=== PATIENT | female | born 1945 | race Caucasian/White ===

== ENCOUNTER 2016-11-03 17:09 | Observation (INO) | payer MEDICARE, OTHER ==
--- NOTE | ~2016-11-03 | PREOPHP ---
PreOp History and Physical [facility] [address] [place]. [address] NAME: BOY ALMAZAN : 41 STATUS : ADM IN [facility]#: [id number] AGE: 71 ADM/REG DATE : 11/03/16 MR#: [id number] REPORT SERV DATE: 11/03/16 DICTATED BY: OTONIEL BAXTER DATE: 11/03/16 REPORT STATUS : Draft TRANSCRIBED BY: KUMAR DATE: 11/03/16 CHIEF COMPLAINT: Intractable right hip and leg pain. HISTORY OF PRESENT ILLNESS: This is a 71-year-old female with severe intractable right hip and leg pain that started in late 06/2016. The pain started after she was down to floor working, helping, removed tile for three days in a row. The pain gradually worsened. She was ultimately seen by Dr. Diaz Chavez and had physical therapy, had epidural injections, nothing was helping. Then just in the last few days the pain suddenly became excruciating with 10/10 pain to the point she has not been able to sleep for last two to three days. She has been unable even get up and sit on the toilet because the pain was so severe. She was seen by my physician's support assistant MRI was obtained showing a very large disk herniation with extrusion on the right L5-S1 causing severe nerve impingement. The patient says she just could not go any further because she lives [place] 50 to 60 miles away because her pain is so intractable and with such a large disk herniation she is admitted for IV pain control, will be taken to surgery in the morning for a right L5- S1 microdiskectomy. Risks, benefits, alternatives, and expectations including, but not limited to infection, recurrent herniation, needing further surgery up to and including arthrodesis is explained. I have also explained there is risk of incidental durotomy, subsequent meningitis or need for surgical drainage or repair. There is always a risk of perioperative complications such as UTI, PE, pneumonia, OR, CVA etc. Consent forms will be signed according to the patient. PAST MEDICAL HISTORY: None. PAST SURGICAL HISTORY: Abdominal hysterectomy and oophorectomy. CURRENT MEDICATIONS: None. ALLERGIES: CODEINE, WHICH CAUSES NAUSEA AND VOMITING, AND RASH. SOCIAL HISTORY: She is . Former smoker, but has not smoked for many years. Does not use any alcohol. Very active. Working constant basis. Driving, doing all of her usual independent living activities. FAMILY HISTORY: Negative. REVIEW OF SYSTEMS: Negative. PHYSICAL EXAMINATION: GENERAL: She is 5 feet 3 inches, 146 pounds. Alert, cooperative, well oriented. Ambulates independently. HEENT: Grossly normal. LUNGS: Clear to auscultation. HEART: Rate is regular and rhythmic. ABDOMEN: Soft with good bowel sounds. No peritoneal signs are noted. MUSCULOSKELETAL: The spine itself has no deformities. She has no paraspinous muscle PreOp History and Physical [address] [address] NAME: BOY ALMAZAN : 41 STATUS : ADM IN [facility]#: [id number] AGE: 71 ADM/REG DATE : 11/03/16 MR#: [id number] REPORT SERV DATE: 11/03/16 DICTATED BY: OTONIEL BAXTER DATE: 11/03/16 REPORT STATUS : Draft TRANSCRIBED BY: MODL DATE: 11/03/16 tenderness. No step-offs in the midline. John signs are negative. VANCE signs are negative. Straight leg raising is positive on the right at 30 degrees. There is a negative contralateral straight leg raising sign. Her motor strengths are normal, but there is a rather dense S1 decreased sensation on the right and there is also a loss of Achilles reflex on the right where as on the left is 1 to 2/4. No signs of myelopathy found. Orthopedically, there is no pain with moving hips, knees, or ankles. There is good pulse in all four extremities. No abnormal skin lesions found. ASSESSMENT: 1. Intractable right-sided S1 radiculopathy. 2. Large herniated nucleus pulposus, right L5-S1 and resulting in #1. RECOMMENDATIONS: As listed above. /MODL Otoniel Baxter D.O. / [id number] CC: Jay Steven,Yessi Le
--- NOTE | ~2016-11-03 | OP ---
Record Of Operation [facility] [address] [place]. [address] NAME: BOY ALMAZAN : 41 STATUS : DIS Patrick PAT#: [id number] AGE: 71 ADM/REG DATE : 11/03/16 MR#: [id number] REPORT SERV DATE: 11/06/16 DICTATED BY: OTONIEL BAXTER DATE: 11/06/16 REPORT STATUS : Draft TRANSCRIBED BY: MODL DATE: 11/06/16 DATE OF PROCEDURE: PREOPERATIVE DIAGNOSIS: Large herniated nucleus pulposus with extrusion, right L5-S1 with intractable S1 radiculopathy. POSTOPERATIVE DIAGNOSIS: Large herniated nucleus pulposus with extrusion, right L5-S1 with intractable S1 radiculopathy. PROCEDURE: Microscopic navigation assisted right L5-S1 microdiskectomy. SURGEON: Otoniel Baxter D.O. HOME HEALTH PROVIDER: Blue Zambrano. ANESTHESIA: General. ESTIMATED BLOOD LOSS: 10 mL. INDICATIONS: Indication for surgery and risks explained. They are listed in the last office note as well history and physical. See that for detail. OPERATION IN DETAIL: Antibiotic prophylaxis given. Neurophysiology monitoring leads inserted. The patient brought to the operative suite where general anesthetic including endotracheal intubation was administered. The patient was placed prone on a Tavon spine frame. Bony prominences were carefully padded. Thoracolumbar spine scrubbed with Hibiclens solution. DuraPrep was painted. Sterile drapes applied. Because of the complexity of surgery and the need to identify correct level of surgery intraoperatively as well as desire to carry out the safest and most precise dissection, I felt that intraoperative navigation was mandatory. A small stab wound was carried out over the left posterior superior iliac spine. Percutaneous pin with navigational frame attached was inserted in PSIS. Intraoperative CT scan with O-arm obtained, CT information used to register the navigational system. With navigational assistance, I identified the L5-S1 interlaminar space. I placed a blunt navigated probe through the fascia and muscle and docked over this location. Muscle dilators were inserted, followed by placement of a tubular retractor attached to an arm mount table. The microscope was then sterilely draped and used throughout the remainder of the procedure. With navigational assistance, I identified the amount of lamina of L5 I needed to remove in order to reach the cephalad boundary of the disk space. The navigational system was used to also determine the amount of medial facet joint that might need to be removed since the disk had pushed the nerve root laterally against the facet joint. I used a 3 mm celina bur. I Record Of Operation [facility] [id number] [facility] [place]. [address] NAME: BOY ALMAZAN : 41 STATUS : DIS Patrick PAT#: [id number] AGE: 71 ADM/REG DATE : 11/03/16 MR#: [id number] REPORT SERV DATE: 11/06/16 DICTATED BY: OTONIEL BAXTER DATE: 11/06/16 REPORT STATUS : Draft TRANSCRIBED BY: MODLesvia DATE: 11/06/16 removed 20% of the lamina of L5 and 15% of medial facet joint. The lateral ligamentum flavum was elevated and removed. I then identified the lateral portion of the thecal sac and the S1 nerve root. I gently retracted toward midline and retrieved a very large extruded disk herniation that was impinging on the S1 nerve root. This came out as a large single fragment. Epidural hemostasis was obtained. The wound was irrigated. The retractor was removed. The fascial opening was closed with a single interrupted #1 Vicryl suture. The subcutaneous tissue closed with 2-0 Vicryl suture, 2-0 vertical mattress nylon suture used for skin closure. Sterile dressings were applied. The patient returned to the supine position, awakened, extubated, taken to recovery room in satisfactory condition having tolerated the procedure well. Sponge, needle, and instrument counts were correct. No intraoperative complications noted. /KUMAR Otoniel Baxter D.O. / [id number] CC: Jay Steven LEANN M.
[~2016-11-03 17:09] MED LIST: ASAB PO; WELLSR150 PO
[2016-11-03 22:46] LABS: BASOPHILS 0.1 %; BASOPHILS ABSOLUTE 0.01 10/3/uL (0.0-0.16); EOSINOPHILS 1.3 %; EOSINOPHILS ABSOLUTE 0.18 10/3/uL (0.0-0.53); HEMATOCRIT 41.6 % (36.0-48.0); HEMOGLOBIN 13.8 g/dL (12.0-16.0); IMMATURE GRANULOCYTES 1.2 %; IMMATURE GRANULOCYTES ABSOLUTE 0.16 10/3/uL (0.0-0.11); LYMPHOCYTES 19.9 %; LYMPHOCYTES ABSOLUTE 2.73 10/3/uL (0.67-4.30); MANUAL DIFF NO %; MEAN CORPUS HGB CONC 33.2 g/dL (32.0-36.0); MEAN CORPUSCULAR HEMOGLOB 29.3 pg (26.0-34.0); MEAN CORPUSCULAR VOLUME 88.3 fL (80-100); MONOCYTES 10.9 %; NEUTROPHILS 66.6 %; NEUTROPHILS ABSOLUTE 9.16 10/3/uL (2.02-8.40); PLATELET COUNT 307 10/3/uL (150-400); RED CELL COUNT 4.71 10/6/uL (4.0-5.6); WHITE BLOOD CELLS 13.7 10/3/uL (4.5-10.5)
[2016-11-03 22:56] LABS: PARTIAL THROMBO TIME 23.8 SEC (22.5-37.2); PROTIME (NOT ORD) 12.8 SEC (12.0-14.5)
[2016-11-04] MEDS ORDERED: METHOC500B PO (15:55)
[2016-11-04] MEDS ORDERED: MOBIC7.5 PO (15:55)
[2016-11-04] MEDS ORDERED: DIL2TAB PO (15:55)
[2016-11-22] MEDS ORDERED: P5 PO (15:29)
[2016-11-22] MEDS ORDERED: MEDROLPAK4 PO (15:34)
[2016-11-22] MEDS ORDERED: DURICEF PO (15:48)
== END 2016-11-04 16:44 | disposition home or self-care (01) ==
LOC: 1SO 17:09
PROVIDERS: Orthopaedic Surgery Orthopaedic Surgery of the Spine
PROC: 01NB0ZZ Release Lumbar Nerve, Open Approach (ICD-10-PCS; 2016-11-04)
PROC: 0SB20ZZ Excision of Lumbar Vertebral Disc, Open Approach (ICD-10-PCS; principal; 2016-11-04 11:00)
DX: M51.17 Intervertebral disc disorders with radiculopathy, lumbosacral region (principal); Z90.710 Acquired absence of both cervix and uterus; Z90.722 Acquired absence of ovaries, bilateral; Z88.5 Allergy status to narcotic agent; Z87.891 Personal history of nicotine dependence
CPT/HCPCS: 71010; 85025; 85610; 85730; 88304; 88311; 93005; G0378; J0690; J1170; J2250; J2274; J2405; J2710; J3010; J3370

== ENCOUNTER 2016-11-23 13:11 | Day surgery (SDC) | payer MEDICARE, OTHER ==
--- NOTE | ~2016-11-23 | OP ---
Record Of Operation [facility] [address] [place]. [address] NAME: BOY ALMAZAN : 41 STATUS : [facility]#: [id number] AGE: 71 ADM/REG DATE : 11/23/16 MR#: [id number] REPORT SERV DATE: 11/24/16 DICTATED BY: OTONIEL BAXTER DATE: 11/23/16 REPORT STATUS : Draft TRANSCRIBED BY: MODL DATE: 11/23/16 DATE OF PROCEDURE: 11/23/2016 PREOPERATIVE DIAGNOSES: 1. Prior right L5-S1 microdiskectomy with relief of the radiculopathy. 2. Postoperative seroma versus possible cerebrospinal fluid leak. POSTOPERATIVE DIAGNOSES: 1. Prior right L5-S1 microdiskectomy with relief of the radiculopathy. 2. Small 2 mm pin hole size cerebrospinal fluid leak. PROCEDURE: 1. Irrigation and debridement. 2. A Duraplasty. SURGEON: tOoniel Baxter D.O. DEVOPS: None. ANESTHESIA: General. ESTIMATED BLOOD LOSS: 10 mL. INDICATIONS FOR SURGERY: A 71-year-old female, who had a right-sided L5-S1 microdiskectomy approximately two and a half weeks ago and had excellent outcome. She had no leg pain after the surgery, and actually had no headache or any other symptoms for five to six days, but had a sudden onset of headache, which was dependent approximately six days after surgery. Headache was worse standing and better when lying down. We saw her in the office, there was no significant drainage, although, she had reported some drainage at home. There was no real fluctuance in . We felt that we could wait to see if this was going to seal. I saw her in the office twice and both times I did not see any actual leakage, but she came yesterday reporting that she had some return of headache which is actually gone away, but now the headache has return. The patient also noted that she had seen a small amount of drainage at home, although, I do not see that at the office. I did aspirate sterilely and found that there was some clear CSF that was at least straw colored fluid, and felt that it was most likely the CSF leak, and possibly a seroma, but I felt with headache and with the aspiration findings that it was probably best to proceed with the inspection of the wound and repair if necessary. I explained to the family and the patient, due the risks of infection, there can always be a persistent leakage and give pain, and can require open CSF drain to be placed for repair. Consent form is signed. DESCRIPTION OF PROCEDURE: The patient was identified in the preop holding area. Antibiotic prophylaxis was given, brought to the operative suite. General anesthetic including endotracheal intubation was administered, placed prone on a Tavon spine frame. Bony prominences were carefully padded. The thoracolumbar spine was scrubbed with Hibiclens solution. DuraPrep was painted. Sterile drapes were applied. Record Of Operation [facility] [address] [facility] [place]. [address] NAME: BOY ALMAZAN : 41 STATUS : [facility]#: [id number] AGE: 71 ADM/REG DATE : 11/23/16 MR#: [id number] REPORT SERV DATE: 11/24/16 DICTATED BY: OTONIEL BAXTER DATE: 11/23/16 REPORT STATUS : Draft TRANSCRIBED BY: KUMAR DATE: 11/23/16 The stitches were removed. The incision was opened, there was a very small amount of clear straw-colored CSF or fluid present and this was cultured. The fascia was opened slightly. I opened the fascia and placed a tubular retractor. On careful inspection initially, I did not find anything, but after having the anesthesiologist Valsalva, I saw a small pinhole size just directly posteriorly right at the superior edge of the lamina of S1. I irrigated the wound. I then sealed it with Tisseel. This was followed by several minutes of time to let the Tisseel seal itself. I then Valsalva on multiple occasions and did not see any leak. I then created a watertight fascial closure with #1 PDS. The subcutaneous tissue closed with 2-0 PDS and 2-0 vertical mattress nylon suture was used for skin closure. Sterile dressing was applied. The patient was then awakened, extubated, and taken recovery room in satisfactory condition having tolerated the procedure well. IZA/KUMAR Otoniel Baxter D.O. / [id number] CC: Jay Steven LEANN M.
[~2016-11-23 13:11] MED LIST changes: +DIL2TAB PO; +DURICEF PO; +MEDROLPAK4 PO; +METHOC500B PO; +MOBIC7.5 PO; +P5 PO
[2016-11-23 13:34] LABS: HEMATOCRIT 44.4 % (36.0-48.0); HEMOGLOBIN 15.1 g/dL (12.0-16.0)
== END 2016-11-23 20:19 | disposition home or self-care (01) ==
LOC: SDC 13:11
PROVIDERS: Orthopaedic Surgery Orthopaedic Surgery of the Spine
PROC: 0JD70ZZ Extraction of Back Subcutaneous Tissue and Fascia, Open Approach (ICD-10-PCS; principal; 2016-11-23 14:45)
DX: G97.0 Cerebrospinal fluid leak from spinal puncture (principal); I10 Essential (primary) hypertension; Z87.891 Personal history of nicotine dependence; Z88.5 Allergy status to narcotic agent; Z90.710 Acquired absence of both cervix and uterus; Z90.49 Acquired absence of other specified parts of digestive tract; Z98.890 Other specified postprocedural states
CPT/HCPCS: 85014; 85018; 87015; 87070; 87075; 87102; 87116; 87205; C1768; J0690; J1170; J2405; J2710; J3010